=== PATIENT | female | born 1970 ===

== ENCOUNTER 2019-09-02 10:00 | Outpatient (CLI) | payer BC ==
[~2019-09-02] VITALS: Ht 165.1 cm; Wt 78.2 kg
[2019-09-03] MEDS ORDERED: DOCU-143 PO (07:42)
[2019-09-03] MEDS ORDERED: ESTR1TAB24 PO (07:42)
[2019-09-03] MEDS ORDERED: OXYC1TAB87 PO (07:42)
[2019-09-03] MEDS ORDERED: IBUP-1780 PO (07:42)
== END 2019-09-02 10:37 | disposition home or self-care (01) ==
LOC: PREOP 10:00
PROVIDERS: ATTEND Obstetrics & Gynecology
DX: Z01.818 Encounter for other preprocedural examination (principal)